=== PATIENT | male | born 1950 | race Caucasian/White ===

== ENCOUNTER 2021-12-08 21:04 | Inpatient (IN) | payer OTHER ==
[~2021-12-08] VITALS: Ht 172.7 cm; Wt 90.3 kg
[~2021-12-08 21:04] MED LIST: ASPI81CH43 PO; CLOP75TA28 PO; METO-6 PO
[2021-12-08 21:31] LABS: Basophils # (auto) 0.1 10 ^3/uL (0-0.2); Basophils % (auto) 0.8 % (0.0-2.0); Eosinophils # (auto) 0.1 10 ^3/uL (0-0.8); Eosinophils % (auto) 1.2 % (0.0-7.0); Hematocrit 47.6 % (41.0-53.0); Hemoglobin 15.9 g/dL (13.5-17.5); Lymphocytes % (auto) 30.9 % (10.0-50.0); Mean Corpuscular Hgb Conc. 33.3 g/dL (32.0-36.0); Mean Corpuscular Volume 89.9 fL (80.0-100.0); Monocytes # (auto) 0.6 10 ^3/uL (0-1.3); Monocytes % (auto) 9.8 % (0.0-12.0); Neutrophils # (auto) 3.6 10 ^3/uL (1.6-8.6); Neutrophils % (auto) 57.3 % (37.0-80.0); Nucleated Red Blood Cells % 0.1 %; Red Blood Cells 5.29 10^6/uL (4.5-5.90); Red Cell Distribution Width 13.3 % (11.8-14.3); White Blood Cell 6.4 10^3/uL (4.4-10.8)
[2021-12-08 21:49] LABS: Albumin 3.8 g/dL (3.4-5.0); Calcium 9.3 mg/dL (8.5-10.1)
[2021-12-08 21:51] LABS: BUN/Creatinine Ratio 12.9; Bilirubin, Total 0.6 mg/dL (0.2-1.0); Total Protein 6.8 g/dL (6.4-8.2)
[2021-12-08] MEDS ORDERED: NITROGLYCERIN 0.4 MG SL TAB SL ONE (22:15)
[2021-12-08] MEDS ORDERED: ENOXAPARIN SOD 100 MG/1 ML SYRINGE SC ONE (23:45)
[2021-12-08] MEDS ORDERED: CLOPIDOGREL BISULFATE 75 MG TAB PO ONE (23:45)
[2021-12-09] MEDS ORDERED: NITROGLYCERIN 0.4 MG SL TAB SL PRN
[2021-12-09] MEDS ORDERED: MORPHINE SULFATE INJ 2 MG/ml SYRG IV PRN ×2
[2021-12-09] MEDS ORDERED: DEXTROSE (50%) 50ML SYRG IV PRN
[2021-12-09] MEDS ORDERED: SOD CHL 0.45% 1,000 ML IV ONE (00:15)
[2021-12-09] MEDS: ACCU-CHEK COMFORT CURVE STRIP VI SCH ×4 (05:54→18:21)
[2021-12-09] MEDS: InsuLIN REG 1unit/0.01ml Soln (100units/ml) SC SCH ×4 (05:56→18:20)
[2021-12-09 06:41] LABS: Basophils # (auto) 0 10 ^3/uL (0-0.2); Basophils % (auto) 0.7 % (0.0-2.0); Eosinophils # (auto) 0 10 ^3/uL (0-0.8); Eosinophils % (auto) 0.6 % (0.0-7.0); Hematocrit 44.6 % (41.0-53.0); Hemoglobin 15.5 g/dL (13.5-17.5); Lymphocytes # (auto) 1.2 10 ^3/uL (0.4-5.4); Lymphocytes % (auto) 20.6 % (10.0-50.0); Mean Corpuscular Hemoglobin 30.8 pg (28.0-32.0); Mean Corpuscular Hgb Conc. 34.6 g/dL (32.0-36.0); Mean Corpuscular Volume 88.9 fL (80.0-100.0); Monocytes # (auto) 0.5 10 ^3/uL (0-1.3); Monocytes % (auto) 9.1 % (0.0-12.0); Neutrophils # (auto) 3.9 10 ^3/uL (1.6-8.6); Nucleated Red Blood Cells % 0.1 %; Red Blood Cells 5.02 10^6/uL (4.5-5.90); Red Cell Distribution Width 13.3 % (11.8-14.3); White Blood Cell 5.6 10^3/uL (4.4-10.8)
[2021-12-09 07:01] LABS: Albumin 3.5 g/dL (3.4-5.0); Calcium 8.5 mg/dL (8.5-10.1); Potassium 3.7 mmol/L (3.5-5.1)
[2021-12-09 07:04] LABS: BUN/Creatinine Ratio 14.3; Bilirubin, Total 0.6 mg/dL (0.2-1.0); Total Protein 6.6 g/dL (6.4-8.2)
[2021-12-09] MEDS ORDERED: ASPirin-EC 325mg tab PO SCH (10:00)
[2021-12-09] MEDS ORDERED: ENOXAPARIN SOD 40 MG/0.4 ML SYRINGE SC SCH (10:00)
[2021-12-09] MEDS: ENOXAPARIN SOD 100 MG/1 ML SYRINGE SC SCH (12:27)
[2021-12-09] MEDS: ONDANSETRON HCL 4 MG/2 ML VIAL IV PRN (18:21)
[2021-12-09 20:51] VITALS: BP 131/79
[2021-12-09 20:56] LABS: Urine Bacteria NONE SEEN /hpf (None Seen); Urine Blood Negative /uL (Negative); Urine Hyaline Cast FEW /lpf (0 - 2); Urine Mucus FEW (None Seen); Urine Specific Gravity 1.012 (1.001-1.035); Urine WBC <1 /hpf (0 - 3)
[2021-12-09] MEDS ORDERED: METO-289 PO (21:31)
[2021-12-09] MEDS ORDERED: PRAV20TA3 PO (21:31)
[2021-12-09] MEDS: IPRATROPIUM BROM 0.5 MG/2.5ML INH SOL NEB PRN (22:13)
[2021-12-09] MEDS: ALBUTEROL SULF 2.5 MG/0.5ML(0.5%) NEB SOLN NEB PRN (22:13)
[2021-12-09 22:35] VITALS: BP 131/79
[2021-12-09 22:42] VITALS: BP 134/81
[2021-12-10] MEDS: ACCU-CHEK COMFORT CURVE STRIP VI SCH ×5 (00:14→23:23)
[2021-12-10] MEDS: ENOXAPARIN SOD 100 MG/1 ML SYRINGE SC SCH ×3 (00:16→23:23)
[2021-12-10 05:00] VITALS: BP 108/79
[2021-12-10] MEDS: InsuLIN REG 1unit/0.01ml Soln (100units/ml) SC SCH ×5 (06:00→23:23)
[2021-12-10 09:19] VITALS: BP 111/70
[2021-12-10] MEDS ORDERED: FUROSEMIDE 40 MG/4 ML VIAL IV ONE (09:45)
[2021-12-10] MEDS: ASPirin-EC 325mg tab PO SCH (10:16)
[2021-12-10] MEDS: CARVEDILOL 3.125 MG TAB PO SCH ×2 (10:17→23:12)
[2021-12-10 12:41] VITALS: BP 115/70
[2021-12-10 14:07] LABS: Basophils # (auto) 0 10 ^3/uL (0-0.2); Basophils % (auto) 0.6 % (0.0-2.0); Eosinophils # (auto) 0 10 ^3/uL (0-0.8); Eosinophils % (auto) 0.3 % (0.0-7.0); Hematocrit 51.3 % (41.0-53.0); Hemoglobin 17.4 g/dL (13.5-17.5); Lymphocytes # (auto) 1.5 10 ^3/uL (0.4-5.4); Lymphocytes % (auto) 20.8 % (10.0-50.0); Mean Corpuscular Hemoglobin 30.5 pg (28.0-32.0); Mean Corpuscular Hgb Conc. 33.8 g/dL (32.0-36.0); Mean Corpuscular Volume 90.2 fL (80.0-100.0); Monocytes # (auto) 0.8 10 ^3/uL (0-1.3); Monocytes % (auto) 11.5 % (0.0-12.0); Neutrophils # (auto) 4.9 10 ^3/uL (1.6-8.6); Neutrophils % (auto) 66.8 % (37.0-80.0); Nucleated Red Blood Cells % 0.2 %; Red Blood Cells 5.69 10^6/uL (4.5-5.90); Red Cell Distribution Width 13.4 % (11.8-14.3); White Blood Cell 7.3 10^3/uL (4.4-10.8)
[2021-12-10 17:31] VITALS: BP 101/68
[2021-12-10] MEDS: ALBUTEROL SULF 2.5 MG/0.5ML(0.5%) NEB SOLN NEB PRN (20:54)
[2021-12-10] MEDS: IPRATROPIUM BROM 0.5 MG/2.5ML INH SOL NEB PRN (20:54)
[2021-12-10] MEDS ORDERED: METOPROLOL TARTRATE 25 MG TAB PO ONE (21:15)
[2021-12-10] MEDS ORDERED: diphenhdrAMINE HCL 50 MG/1 ML VL IV ONE (23:30)
[2021-12-11] VITALS (8 sets, daily range): BP systolic 121–148; BP diastolic 80–96
[2021-12-11] MEDS: CARVEDILOL 3.125 MG TAB PO SCH ×3 (00:44→21:48)
[2021-12-11] MEDS: InsuLIN REG 1unit/0.01ml Soln (100units/ml) SC SCH ×4 (06:00→23:45)
[2021-12-11] MEDS: ACCU-CHEK COMFORT CURVE STRIP VI SCH ×4 (06:07→23:44)
[2021-12-11 06:28] LABS: Basophils # (auto) 0 10 ^3/uL (0-0.2); Basophils % (auto) 0.6 % (0.0-2.0); Eosinophils # (auto) 0 10 ^3/uL (0-0.8); Eosinophils % (auto) 0.5 % (0.0-7.0); Hematocrit 50.1 % (41.0-53.0); Hemoglobin 17.1 g/dL (13.5-17.5); Lymphocytes # (auto) 1.8 10 ^3/uL (0.4-5.4); Lymphocytes % (auto) 23.7 % (10.0-50.0); Mean Corpuscular Hemoglobin 30.6 pg (28.0-32.0); Mean Corpuscular Hgb Conc. 34.2 g/dL (32.0-36.0); Mean Corpuscular Volume 89.4 fL (80.0-100.0); Monocytes # (auto) 0.8 10 ^3/uL (0-1.3); Neutrophils # (auto) 4.9 10 ^3/uL (1.6-8.6); Neutrophils % (auto) 64.2 % (37.0-80.0); Nucleated Red Blood Cells % 0.2 %; Red Cell Distribution Width 13.5 % (11.8-14.3); White Blood Cell 7.7 10^3/uL (4.4-10.8)
[2021-12-11 06:42] LABS: Albumin 3.7 g/dL (3.4-5.0); Calcium 9.2 mg/dL (8.5-10.1); Potassium 3.7 mmol/L (3.5-5.1)
[2021-12-11 06:47] LABS: BUN/Creatinine Ratio 15.4; Bilirubin, Total 1.3 mg/dL (0.2-1.0); Total Protein 6.9 g/dL (6.4-8.2)
[2021-12-11] MEDS: ASPirin-EC 325mg tab PO SCH (09:54)
[2021-12-11] MEDS ORDERED: METOPROLOL TARTRATE 25 MG TAB PO SCH (10:00)
[2021-12-11] MEDS ORDERED: LIDOCAINE 2%HCL (LOCAL ANESTH.) INJ 20ML MDV ONE (10:51)
[2021-12-11] MEDS ORDERED: fentaNYL CITRATE 100 MCG/2 ML VL ONE (10:52)
[2021-12-11] MEDS ORDERED: ANGIOMAX 250 MG VIAL IV ONE (10:52)
[2021-12-11] MEDS ORDERED: VERAPAMIL 2.5MG/ML INJ 2ML VIAL IV ONE (10:52)
[2021-12-11] MEDS ORDERED: HEPARIN SODIUM (PORCINE) 5000 UNITS/ML 1ML VIAL ONE (10:52)
[2021-12-11] MEDS ORDERED: MIDAZOLAM HCL 2MG/2ML 2ml VIAL (1mg/ml) ONE (10:53)
[2021-12-11] MEDS ORDERED: SODIUM CHL 0.9% 50 ML ONE (10:53)
[2021-12-11] MEDS ORDERED: TICAGRELOR 90 MG TAB ONE (11:23)
[2021-12-11] MEDS ORDERED: IODIXANOL 320MG/ML 100ML BTL IV ONE (11:30)
[2021-12-11] MEDS ORDERED: HYDROmorphone HCL 2 MG/ML VL/or syr ONE (11:36)
[2021-12-11] MEDS ORDERED: ASPirin 81 mg TAB ONE (11:37)
[2021-12-11] MEDS ORDERED: HYDROmorphone HCL 2 MG/ML VL/or syr IV PRN (14:00)
[2021-12-11] MEDS ORDERED: NITROGLYCERIN 0.4 MG SL TAB SL PRN (14:00)
[2021-12-11] MEDS: ONDANSETRON HCL 4 MG/2 ML VIAL IV PRN ×2 (16:46→16:51)
[2021-12-11] MEDS: TICAGRELOR 90 MG TAB PO SCH (21:49)
[2021-12-12 05:00] VITALS: BP 116/87
[2021-12-12] MEDS: ACCU-CHEK COMFORT CURVE STRIP VI SCH ×2 (05:34→11:50)
[2021-12-12] MEDS: InsuLIN REG 1unit/0.01ml Soln (100units/ml) SC SCH ×2 (05:35→11:49)
[2021-12-12 06:17] LABS: Basophils # (auto) 0 10 ^3/uL (0-0.2); Basophils % (auto) 0.4 % (0.0-2.0); Eosinophils # (auto) 0 10 ^3/uL (0-0.8); Eosinophils % (auto) 0.6 % (0.0-7.0); Hematocrit 47.5 % (41.0-53.0); Hemoglobin 16.4 g/dL (13.5-17.5); Lymphocytes # (auto) 1.2 10 ^3/uL (0.4-5.4); Lymphocytes % (auto) 18.4 % (10.0-50.0); Mean Corpuscular Hemoglobin 30.9 pg (28.0-32.0); Mean Corpuscular Hgb Conc. 34.5 g/dL (32.0-36.0); Mean Corpuscular Volume 89.5 fL (80.0-100.0); Monocytes # (auto) 0.8 10 ^3/uL (0-1.3); Monocytes % (auto) 12.2 % (0.0-12.0); Neutrophils # (auto) 4.6 10 ^3/uL (1.6-8.6); Neutrophils % (auto) 68.4 % (37.0-80.0); Nucleated Red Blood Cells % 0.3 %; Red Blood Cells 5.31 10^6/uL (4.5-5.90); Red Cell Distribution Width 13.3 % (11.8-14.3); White Blood Cell 6.8 10^3/uL (4.4-10.8)
[2021-12-12 09:00] VITALS: BP 119/66
[2021-12-12] MEDS ORDERED: CAR3125T PO (09:10)
[2021-12-12] MEDS ORDERED: NITR0.4S29 SL (09:10)
[2021-12-12] MEDS ORDERED: TICA90TA PO (09:10)
[2021-12-12] MEDS ORDERED: ASPI325T31 PO (09:10)
[2021-12-12] MEDS ORDERED: LOSA25TA38 PO (09:12)
[2021-12-12] MEDS ORDERED: SPIR25TA PO (09:12)
[2021-12-12] MEDS ORDERED: FURO1TAB33 PO (09:12)
[2021-12-12] MEDS ORDERED: LISI20TA28 PO (09:12)
[2021-12-12] MEDS ORDERED: DAPAGLIFLOZIN 5 MG TAB PO SCH (10:00)
[2021-12-12] MEDS: ASPirin-EC 325mg tab PO SCH (10:04)
[2021-12-12] MEDS: CARVEDILOL 3.125 MG TAB PO SCH (10:04)
[2021-12-12] MEDS: TICAGRELOR 90 MG TAB PO SCH (10:04)
[2021-12-12 12:26] VITALS: BP 119/66
== END 2021-12-12 13:00 | disposition home or self-care (01) | DRG 246 ==
LOC: ER 21:04 → OBSVTOIN 23:54 → TELE 23:54 → TELE-WESTW 12-09 20:50
PROVIDERS: ADMIT Internal Medicine; ATTEND Internal Medicine
PROC: 027034Z Dilation of Coronary Artery, One Artery with Drug-eluting Intraluminal Device, Percutaneous Approach (ICD-10-PCS; principal; 2021-12-11)
PROC: B211YZZ Fluoroscopy of Multiple Coronary Arteries using Other Contrast (ICD-10-PCS; 2021-12-11)
DX: I21.4 Non-ST elevation (NSTEMI) myocardial infarction (principal); I50.21 Acute systolic (congestive) heart failure; I25.10 Atherosclerotic heart disease of native coronary artery without angina pectoris; E11.9 Type 2 diabetes mellitus without complications; E66.9 Obesity, unspecified; I11.0 Hypertensive heart disease with heart failure; Z20.822 Contact with and (suspected) exposure to COVID-19; E78.5 Hyperlipidemia, unspecified; I25.2 Old myocardial infarction; Z68.31 Body mass index [BMI] 31.0-31.9, adult; Z88.8 Allergy status to other drugs, medicaments and biological substances; Z79.02 Long term (current) use of antithrombotics/antiplatelets; Z79.82 Long term (current) use of aspirin; Z79.899 Other long term (current) drug therapy
CPT/HCPCS: 36415; 71045; 80053; 81001; 82962; 84484; 85025; 85610; 86850; 86900; 86901; 87081; 93005; 93306; 94640; 96361; 96372; 96374; 99152; 99153; 99291; C1874; G0378; J1815; J2250; J2405; Q9967